=== PATIENT | male | born 1960 | race Caucasian/White ===

== ENCOUNTER 2019-04-04 23:32 | Emergency (ER) | payer MEDICAID ==
[~2019-04-04] VITALS: Ht 180.3 cm; Wt 81.8 kg
[~2019-04-04 23:32] MED LIST: IBUP-1573 PO; IBUP-1984 PO
[2019-04-05] MEDS ORDERED: CefTRIAXone 2gm/D5W 50ml 50 ML IV ONE (00:10)
[2019-04-05] MEDS ORDERED: vancomycin/NS 1 GM ADD-VANTAGE 250 ML IV ONE (00:10)
[2019-04-05] MEDS ORDERED: acetaminophen 325mg tablet PO ONE (00:50)
--- NOTE | 2019-04-05 00:51 | NUR ---
Patient is requesting pain medication, is allergic to Rhine. Per MD he will order Tylenol.
[2019-04-05 00:54] LABS: BASOPHILS # (AUTO) 0.1 X10'3 (0-0.2); BASOPHILS % (AUTO) 0.7 % (0-1); EOSINOPHILS # (AUTO) 0.1 X10'3 (0-0.9); EOSINOPHILS % (AUTO) 0.7 % (0-6); HEMATOCRIT 36.2 % (42.0-52.0); HEMOGLOBIN 12.7 g/dl (14.0-17.9); LYMPHOCYTES # (AUTO) 2.1 X10'3 (1.1-4.8); LYMPHOCYTES % (AUTO) 17.3 % (21-51); MEAN CORPUSCULAR HEMOGLOBIN 30.6 PG (27.0-31.0); MEAN CORPUSCULAR HGB CONC 35.1 g/dL (33.0-36.5); MEAN CORPUSCULAR VOLUME 87.2 FL (78-98); MEAN PLATELET VOLUME 8.1 FL (7.4-10.4); MONOCYTES # (AUTO) 1.3 X10'3 (0-0.9); MONOCYTES % (AUTO) 10.2 % (2-12); NEUTROPHILS # (AUTO) 8.8 X10'3 (1.8-7.7); NEUTROPHILS % (AUTO) 71.1 % (42-75); PLATELET COUNT 327 X10'3 (140-440); RED BLOOD COUNT 4.15 X10'6 (4.70-6.10); RED CELL DISTRIBUTION WIDTH 12.2 % (11.5-14.5); WHITE BLOOD COUNT 12.3 X10'3 (4.5-11.0)
[2019-04-05 01:00] LABS: ALANINE AMINOTRANSFERASE 34 U/L (12-78); ALBUMIN/GLOBULIN RATIO 0.8 (1.1-1.5); ALKALINE PHOSPHATASE 68 IU/L (46-116); ANION GAP 8 (8-16); ASPARTATE AMINO TRANSFERASE 28 U/L (10-37); BILIRUBIN,TOTAL 0.3 MG/DL (0.1-1.0); BLOOD UREA NITROGEN 11 MG/DL (7-18); BUN/CREATININE RATIO 12.2 (5.4-32.0); CALCIUM 8.4 MG/DL (8.5-10.1); CHLORIDE 102 MMOL/L (99-107); GLUCOSE 135 MG/DL (70-104); MAGNESIUM 1.8 MG/DL (1.5-2.4); POTASSIUM 3.8 MMOL/L (3.5-5.1); SODIUM 138 MMOL/L (135-145); TOTAL CARBON DIOXIDE 28.4 MMOL/L (24-32); TOTAL PROTEIN 6.7 G/DL (6.4-8.2); eGFR 87 ML/MIN
[2019-04-05] MEDS ORDERED: SULF1TAB49 PO (01:15)
[2019-04-05] MEDS ORDERED: CEPH-572 PO (01:15)
[2019-04-05 02:49] VITALS: BP 146/51
== END 2019-04-05 02:53 | disposition home or self-care (01) ==
LOC: ER 23:32
DX: L03.012 Cellulitis of left finger (principal); Z88.5 Allergy status to narcotic agent
CPT/HCPCS: 36415; 73140; 80053; 83605; 83735; 84145; 85025; 87040; 96365; 96366; 96368; 99284; J0696; J3370